=== PATIENT | female | born 1985 | race African-American/Black ===

== ENCOUNTER 2022-01-05 19:31 | Emergency (ER) | payer SELFPAY ==
[~2022-01-05] VITALS: Ht 157.5 cm; Wt 50.1 kg
[2022-01-05 20:00] VITALS: BP 130/81
== END 2022-01-05 21:30 | disposition left against medical advice (07) ==
LOC: ER 19:31
DX: Z53.21 Procedure and treatment not carried out due to patient leaving prior to being seen by health care provider (principal); Z98.890 Other specified postprocedural states